=== PATIENT | male | born 1995 | race Caucasian/White ===

== ENCOUNTER 2024-08-30 16:14 | Emergency (ER) | payer SELFPAY ==
[2024-08-30 16:14] VITALS: BP 146/80; PULSE 88; RESP 16; TEMP 36.4; O2SAT 99
--- OUTSIDE RECORDS SUMMARY | 2024-08-30 16:16 | XMS_ITS | Clinical Summary ---
Author Organization [facility] [employer] Address [address] [place] [address] Care Team Providers Care Optical Engineering Manager Name Role Phone None, Physician Primary Care Provider Unavailabl e Source Comments [facility] [employer],non-owned Affiliates and Associated Physician Practices is amultiple site organization consisting of ambulatory clinics and hospital sitesin [place], [place], [place] and [place]. This disclosure is being madepursuant to the Care Everywhere program and may not contain all information available regarding this patient. Last updated 17.[facility] [employer] Allergies No known active allergies Medications * Be aware that medications may not be up to date on this document. Alwaysverify current medications with the patient. erythromycin (Romycin) 5 MG/GM ophthalmic ointment Instill into left eye 4 times daily 3.5 g 05/21/2024 Active oxymetazoline (Afrin) 0.05 % nasal spray Floyd 1 (one) spray into each nostril 2 times daily 37 mL 05/21/2024 Active Immunizations Immunization Administration Dates Next Due TDAP (7yrs+) 05/21/2024 Social History Tobacco Use Types Packs/Day Years Used Date Smoking Tobacco: Never Assessed Sex and Gender Information Value Date Recorded Sex Assigned at Not on file Legal Sex Male 4:47 PM CDT Gender Identity Not on file Sexual Orientation Not on file Last Filed Vital Signs Vital Sign Reading Time Taken Comments Blood Pressure 148/93 05/21/2024 11:26 PM CDT Pulse 75 05/21/2024 11:26 PM CDT Temperature 36.2 C (97.1 F) 05/21/2024 7:38 PM CDT Respiratory Rate 18 05/21/2024 11:26 PM CDT Oxygen Saturation 99% 05/21/2024 11:26 PM CDT Inhaled Oxygen Concentration - - Weight 117.9 kg (260 lb) 05/21/2024 7:35 PM CDT Height 180.3 cm (5' 11) 05/21/2024 7:35 PM CDT Body Mass Index 36.26 05/21/2024 7:35 PM CDT Plan of Treatment Health Maintenance Due Date Last Done Comments HIV SCREENING 2008 HEPATITIS C SCREENING 11/03/2011 HEPATITIS B VACCINE (1 of 3 - 19+ 3-dose series) 2012 COVID-19 VACCINE ( - 2023-2 5 season) 2023 DEPRESSION SCREENING 02/23/2024 INFLUENZA VACCINE (#1) 2024 12/01/2016 DTAP/TDAP/TD VACCINES (2 - T d or Tdap) 05/21/2034 05/21/2024 ZOSTER VACCINE (1 of 2) 11/08/2043 HIB VACCINE Aged Out No longer eligi ble based on patient's age to complete this topic HPV VACCINE Aged Out No longer eligi ble based on patient's age to complete this topic MENINGOCOCCAL (Group B) VACC INE SHARED DECISION-MAKING Aged Out No longer eligibl e based on patient's age to complete this topic MENINGOCOCCAL GROUPS A/C/Y/W VACCINE Aged Out No longer eligible b ased on patient's age to complete this topic PNEUMOCOCCAL VACCINE Aged Out No long er eligible based on patient's age to complete this topic Care Teams Optical Engineering Manager Relationship Specialty Start Date End Date None, Physician PCP - General 05/21/24
--- OUTSIDE RECORDS SUMMARY | 2024-08-30 16:16 | XMS_ITS | Referral Summary ---
Author Organization [facility] Address [address] [place] [address] Care Team Providers Care Records Management Analyst Name Role Phone No, Physician Primary Care Provider [phone] Allergies No known active allergies Medications oxyCODONE (ROXICODONE) 10 mg tabletIndication s:Pain Take 1 tablet (10 mg total) by mouth every 4 (four) hours as needed for pain 10 tablet 06/05/2021 Active senna-docusate (PERICOLACE) 8.6-50 mg Take 1 tablet by mouth 2 (two) times a day 60 tablet 06/05/2021 Active ondansetron (ZOFRAN) 4 mg tablet Take 1 tablet (4 mg total) by mouth every 6 (six) hours 12 tablet 11/13/2022 Active dicyclomine (BENTYL) 20 mg tablet Take 1 tablet (20 mg total) by mouth 2 (two) times a day 20 tablet 11/13/2022 Active Active 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 Monthly or less 06/04/2021 Q2: How many drinks containi ng alcohol do you have on a typical day when you are drinking? 3 or 4 06/04/2021 Q3: How often do you have si x or more drinks on one occasion? Never 06/04/2021 PHQ-2 Answer Date Recorded PHQ-2 Total Score (If total score is 3 or more points, staff should administer the PHQ-9) 0 05/27/2021 Personal Safety Answer Date Recorded Have you ever been in or are you currently in a harmful physical or emotional relationship or is someone making you feel afraid or unsafe? Denies 11/13/2022 Sex and Gender Information Value Date Recorded Sex Assigned at Not on file Legal Sex Male 6:12 PM CDT Gender Identity Not on file Sexual Orientation Not on file Last Filed Vital Signs Vital Sign Reading Time Taken Comments Blood Pressure 160/100 11/13/2022 8:17 AM CDT Pulse 77 11/13/2022 10:45 AM CDT Temperature 36.6 C (97.9 F) 11/13/2022 8:17 AM CDT Respiratory Rate 16 11/13/2022 8:17 AM CDT Oxygen Saturation 97% 11/13/2022 10:45 AM CDT Inhaled Oxygen Concentration - - Weight 146.5 kg (323 lb) 11/13/2022 8:17 AM CDT Height 182.9 cm (6') 11/13/2022 8:17 AM CDT Body Mass Index 43.81 11/13/2022 8:17 AM CDT Plan of Treatment Not on file Medical Devices Implanted Type Area Frit Mixer Device Identifier Shelf Expiration Date Model / Serial / Lot [employer] Micromatrix Micronize Particle Dressing 1000mg Biological Porcine [id number] - [id number] - [id number] Implanted:Qty: 1 on 06/04/2021 by Marcie Bailey MD at [facility] Collagen Right: Groin [employer] [id number] 07/22/2022 [id number] / [id number] / [id number] [employer] Micromatrix Micronize Particle Dressing 1000mg Biological Porcine [id number] - [id number] - [id number] Implanted:Qty: 1 on 06/04/2021 by Marcie Bailey MD at [facility] Collagen Right: Groin [employer] [id number] 07/22/2022 [id number] / [id number] / [id number] [employer] [id number] Cytal 10x7cm 3 Layer Matrix Tissue Porcine Bladder - [id number] - [id number] Implanted:Qty: 1 on 06/01/2021 by Marcie Bailey MD at [facility] Mesh N/A: Scrotum [employer] 06/21/2021 [id number] / [id number] / Description:Entire 10 x 7 cm acell implanted. [employer] Micromatrix Micronize Particle Dressing 1000mg Biological Porcine [id number] - [id number] - [id number] Implanted:Qty: 1 on 06/01/2021 by Marcie Bailey MD at [facility] Other - see comments N/A: Scrotum [employer] [id number] 07/22/2022 [id number] / [id number] / [id number] Description:PASTE POWDER Insurance [facility] Advance Directives For more information, please contact: [phone] * Full Code (Latest Code Status on File) Date Activated Date Inactivated Comments 05/27/2021 7:42 PM 06/05/2021 5:10 PM Care Teams Records Management Analyst Relationship Specialty Start Date End Date No, Physician PCP - General 05/27/21
--- OUTSIDE RECORDS SUMMARY | 2024-08-30 16:16 | XMS_ITS | Data Portability ---
Author Organization Bryan [facility]KE[facility] Address [address] [place] [address] Assessment No assessment recorded. Plan of Treatment Reminders Order Date Submit Date Provider Last Modified By Organization Details Last Modified Time Details Appointments None recorded. Lab lipid panel, serum 2023 024 [facility], [address] [place] [address], [facility] [address], [place], [address], 4 08:15:00 HbA1c (hemoglobi n A1c), blood 2023 024 [facility], [address], [address], [place], [address], 4 08:15:01 CBC w/ auto diff 2016 017 [facility] [place] ([facility]), [address], [place], [address], 7 15:16:48 CMP, serum or plasma 2016 017 [facility] [place] [facility]), [address], [place], [address], 7 15:53:19 TSH, serum or plasma 2016 017 [facility] [place] [facility]), [address], [place], [address], 7 15:42:09 T4, free, serum 2016 017 [facility] [place] [facility]), [address], [place], [address], 7 04:10:25 urinalysis , dipstick, reflex micro 2016 017 [facility] [place] [facility]), [address], [place], [address], 7 15:17:19 HbA1c (hemoglobi n A1c), blood 2016 017 [facility] [place] [facility]), [address], [place], [address], 7 03:37:57 cholestero l, total, serum 2016 017 [facility] [place] [facility]), [address], [place], [address], 7 15:53:22 Referral general surgeon referral 2023 024 [email or web address] José Manuel Nuñez , [address] [place], [address], 4 16:21:[address]/dietiti an referral 2016 017 [email or web address] [id number] [facility], [address] [place], [address], 7 11:17:15 Procedures None recorded. Surgeries None recorded. Imaging XR, knee, 3 view 2016 017 [facility] ([facility]), [address] [place], [address], 8 00:00:26 XR, knee, 3 view 2016 017 [facility] ([facility]), [address] [place], [address], 8 00:00:26 Medication Orders Carafate 1 gram tablet 2023 024 [id number], [address] [place], [address], 4 15:01:24 pantoprazo le 40 mg tablet,del ayed release 2023 024 [id number], [address] [place], [address], 4 15:01:24 chlorthali done 25 mg tablet 2023 024 [id number], [address] [place], [address], 4 15:01:24 pantoprazo le 40 mg tablet,del ayed release 2023 024 [id number], [address] [place], [address], 4 15:51:27 Carafate 1 gram tablet 2023 024 [id number], [address] [place], [address], 4 15:51:22 Patient TargetsNo targets recorded. Patient Instructions Encounter Date Encounter Id Patient Instructions Last Modified By Organization Details Last Modified Time 09/29/2023 [id number] A healthy lifestyle: care instructions Not available 09/29/2023 15:19:05 11/03/2023 [id number] A healthy lifestyle: care instructions Not available 11/03/2023 15:01:22 Reason for Referral Generation Technician/dietitian Refer ral for Morbid obesity Referring Physician: Antonella Dias [facility], Encounter Date: 12/01/2016 General Surgeon Referral for Abdominal pain Referring Physician: [facility]elius [facility]ada [facility], Encounter Date: 09/29/2023 Results Created Date Observation Date Name Description Value Unit Range Abnormal Flag Note LastModifiedBy Organization Detail LastModifiedTime 12/02/19 17 12/01/2016 CBC w/ auto diff WBC 9.4 K/uL 3.4-10 .8 Not Available [facility] (Lab) [address] [place], [address], 12/01/2016 15:16:48 12/02/19 17 12/01/2016 CBC w/ auto diff red blood count 5.8 M/uL 4.5-6. [address] [facility] (Lab) [address] [place], [address], 12/01/2016 15:16:48 12/02/19 17 12/01/2016 CBC w/ auto diff hemoglobin 17.1 g/dL 13.5-[address] [facility] (Lab) [address] [place], [address], 12/01/2016 15:16:48 12/02/19 17 12/01/2016 CBC w/ auto diff hematocrit 50.0 % 40.0-5 2.0 Not Available [facility] (Lab) [address] [place], [address], 12/01/2016 15:16:48 12/02/19 17 12/01/2016 CBC w/ auto diff MCV 86 fL 80-[address] [facility] (Lab) [address] [place], [address], 12/01/2016 15:16:48 12/02/19 17 12/01/2016 CBC w/ auto diff MCH 29 pg 27-32 Not Available [facility] (Lab) [address] [place], [address], 12/01/2016 15:16:48 12/02/19 17 12/01/2016 CBC w/ auto diff MCHC 34 g/dL 32-36 Not Available [facility] (Lab) [address] [place], [address], 12/01/2016 15:16:48 12/02/19 17 12/01/2016 CBC w/ auto diff platelets 323 K/uL 155-37 9 Not Available [facility] (Lab) [address], [place], [address], 12/01/2016 15:16:48 12/02/19 17 12/01/2016 CBC w/ auto diff RDW 12.8 % 11.5-1 4.5 Not Available [facility] (Lab) [address] [facility], [place], [address], 12/01/2016 15:16:48 12/02/19 17 12/01/2016 CBC w/ auto diff MPV 10.1 fL 8.9-12 .7 Not Available [facility] (Lab) [address] [place], [address], 12/01/2016 15:16:48 12/02/19 17 12/01/2016 CBC w/ auto diff neutrophils absolute 5.4 K/uL 1.4-7. 0 Not Available [facility] (Lab) [address] [facility], [place], [address], 12/01/2016 15:16:48 12/02/19 17 12/01/2016 CBC w/ auto diff lymphs (absolute) 2.7 K/uL 0.7-3. 1 Not Available [facility] (Lab) [address] [facility], [place], [address], 12/01/2016 15:16:48 12/02/19 17 12/01/2016 CBC w/ auto diff monocytes (absolute) 0.6 K/uL 0.1-0. 9 Not Available [facility] (Lab) [address] [place], [address], 12/01/2016 15:16:48 12/02/19 17 12/01/2016 CBC w/ auto diff eos (absolute) 0.6 K/uL 0.0-0. 4 high Not Available [facility] (Lab) [address] [place], [address], 12/01/2016 15:16:48 12/02/19 17 12/01/2016 CBC w/ auto diff baso (absolute) 0.1 K/uL 0.1-0. 3 Not Available [facility] (Lab) [address] [place], [address], 12/01/2016 15:16:48 12/02/19 17 12/01/2016 CBC w/ auto diff neut % 58.0 % 40.0-7 4.0 Not Available [facility] (Lab) [address] [place], [address], 12/01/2016 15:16:48 12/02/19 17 12/01/2016 CBC w/ auto diff lymphs % 28.3 % 14.0-4 6.0 Not Available [facility] (Lab) [address] [place], [address], 12/01/2016 15:16:48 12/02/19 17 12/01/2016 CBC w/ auto diff mono % 6.7 % 4.0-12 .0 Not Available [facility] (Lab) [address] [place], [address], 12/01/2016 15:16:48 12/02/19 17 12/01/2016 CBC w/ auto diff eos % 6 % <=5 high Not Available [facility] (Lab) [address] [facility], [place], [address], 12/01/2016 15:16:48 12/02/19 17 12/01/2016 CBC w/ auto diff baso % 1.0 % 0.1-1. 1 Not Available [facility] (Lab) [address] [place], [address], 12/01/2016 15:16:48 12/02/19 17 12/01/2016 urina lysis , dipst ick, refle x micro urhead1 URINAL YSIS, COMPLE TE Ur inalys is Gross Exam Not Available [facility] (Lab) [address] [place], [address], 12/01/2016 15:17:19 10/10/20 17 12/01/2016 urina lysis , dipst ick, refle x micro specific gravity 1.025 1.001- 1.035 Not Available [facility] (Lab) [address], [place], [address], 12/01/2016 15:17:19 12/02/19 17 12/01/2016 urina lysis , dipst ick, refle x micro pH 6.0 5.0-7. 0 Not Available [facility] (Lab) [address], [place], [address], 12/01/2016 15:17:19 12/02/19 17 12/01/2016 urina lysis , dipst ick, refle x micro urine-color YELLOW yellow Not Available [facility] ([facility]) [address], [place], [address], 12/01/2016 15:17:19 12/02/19 17 12/01/2016 urina lysis , dipst ick, refle x micro appearance CLEAR clear Not Available [facility] ([facility]) [address], [place], [address], 12/01/2016 15:17:19 12/02/19 17 12/01/2016 urina lysis , dipst ick, refle x micro WBC esterase NEGATI VE uL negati ve Not Available [facility] (Lab) [address], [place], [address], 12/01/2016 15:17:19 12/02/19 17 12/01/2016 urina lysis , dipst ick, refle x micro protein NEGATI VE mg/dL negati ve Not Available [facility] (Lab) [address] [place], [address], 12/01/2016 15:17:19 12/02/19 17 12/01/2016 urina lysis , dipst ick, refle x micro glucose NEGATI VE mg/dL negati ve Not Available [facility] (Lab) [address] [place], [address], 12/01/2016 15:17:19 12/02/19 17 12/01/2016 urina lysis , dipst ick, refle x micro ketones NEGATI VE mg/dL negati ve Not Available [facility] (Lab) [address], [place], [address], 12/01/2016 15:17:19 12/02/19 17 12/01/2016 urina lysis , dipst ick, refle x micro occult blood NEGATI VE familia/u L negati ve Not Available [facility] (Lab) [address], [place], [address], 12/01/2016 15:17:19 12/02/19 17 12/01/2016 urina lysis , dipst ick, refle x micro bilirubin NEGATI VE negati ve Not Available [facility] (Lab) [address], [place], [address], 12/01/2016 15:17:19 12/02/19 17 12/01/2016 urina lysis , dipst ick, refle x micro urobilinogen 0.2 Not Available [facility] (Lab) [address], [place], [address], 12/01/2016 15:17:19 12/02/19 17 12/01/2016 urina lysis , dipst ick, refle x micro nitrite, urine NEGATI VE negati ve Not Available [facility] (Lab) [address], [place], [address], 12/01/2016 15:17:19 12/02/19 17 12/01/2016 TSH, serum or plasm a TSH 1.44 uIU/m L 0.50-4 .50 Not Available [facility] (Lab) [address], [place], [address], 12/01/2016 15:42:09 12/02/19 17 12/01/2016 CMP, serum or plasm a glucose, serum 98 mg/dL 65-99 Not Available [facility] ([facility]) [address], [place], [address], 12/01/2016 15:53:19 12/02/19 17 12/01/2016 CMP, serum or plasm a BUN 14 mg/dL 8-26 Not Available [facility] (Lab) [address], [place], [address], 12/01/2016 15:53:19 12/02/19 17 12/01/2016 CMP, serum or plasm a creatinine, serum 1.00 mg/dL 0.50-[address] [facility] (Lab) [address], [place], [address], 12/01/2016 15:53:19 12/02/19 17 12/01/2016 CMP, serum or plasm a BUN/creatnin e ratio 14.0 Not Available [facility] (Lab) [address], [place], [address], 12/01/2016 15:53:19 12/02/19 17 12/01/2016 CMP, serum or plasm a sodium, serum 141.0 mEq/L 136.0- 144.0 Not Available [facility] (Lab) [address], [place], [address], 12/01/2016 15:53:19 12/02/19 17 12/01/2016 CMP, serum or plasm a potassium, serum 4.5 mmol/ L 3.5-5. 3 Not Available [facility] (Lab) [address], [place], [address], 12/01/2016 15:53:19 12/02/19 17 12/01/2016 CMP, serum or plasm a chloride, serum 103 mmol/ l 101-11 1 Not Available [facility] (Lab) [address], [place], [address], 12/01/2016 15:53:19 12/02/19 17 12/01/2016 CMP, serum or plasm a carbon dioxide total 24.7 mmol/ L 21.0-3 2.0 Not Available [facility] (Lab) [address], [place], [address], 12/01/2016 15:53:19 12/02/19 17 12/01/2016 CMP, serum or plasm a aniongp 18.0 mmol/ L Not Available [facility] (Lab) [address], [place], [address], 12/01/2016 15:53:19 12/02/19 17 12/01/2016 CMP, serum or plasm a calcium, serum 10.1 mg/dL 8.2-10 .0 high Not Available [facility] (Lab) [address], [place], [address], 12/01/2016 15:53:19 12/02/19 17 12/01/2016 CMP, serum or plasm a total protein 7.2 g/dL 6.7-8. 2 Not Available [facility] (Lab) [address], [place], [address], 12/01/2016 15:53:19 12/02/19 17 12/01/2016 CMP, serum or plasm a albumin, serum 4.6 g/dL 3.5-5. 5 Not Available [facility] (Lab) [address], [place], [address], 12/01/2016 15:53:19 12/02/19 17 12/01/2016 CMP, serum or plasm a agratio 1.8 Not Available [facility] (Lab) [address], [place], [address], 12/01/2016 15:53:19 12/02/19 17 12/01/2016 CMP, serum or plasm a bilt 0.3 mg/dL 0.2-1. 0 Not Available [facility] (Lab) [address], [place], [address], 12/01/2016 15:53:19 12/02/19 17 12/01/2016 CMP, serum or plasm a AST 16.0 U/L 10.0-4 2.0 Not Available [facility] (Lab) [address], [place], [address], 12/01/2016 15:53:19 12/02/19 17 12/01/2016 CMP, serum or plasm a ALT 26.0 U/L 10.0-[address] [facility] (Lab) [address], [place], [address], 12/01/2016 15:53:19 12/02/19 17 12/01/2016 CMP, serum or plasm a alk phos 68.0 IU/L 42.0-[address] [facility] (Lab) [address], [place], [address], 12/01/2016 15:53:19 12/02/19 17 12/01/2016 CMP, serum or plasm a osmol 282.0 mOsm/ L 275.0- 301.[address] [facility] (Lab) [address], [place], [address], 12/01/2016 15:53:19 12/02/19 17 12/01/2016 CMP, serum or plasm a eGFR, AM 119 m/lmi n/1.7 3_m >=[address] [facility] (Lab) [address], [place], [address], 12/01/2016 15:53:19 12/02/19 17 12/01/2016 CMP, serum or plasm a eGFR, non- AM 99 mL/mi n/1.7 3/m >=[address] [facility] (Lab) [address], [place], [address], 12/01/2016 15:53:19 12/02/19 17 12/01/2016 sherif stero l, total , serum cholestrol 232.0 mg/dL 140.0- 200.[address] [facility] (Lab) [address], [place], [address], 12/01/2016 15:53:22 1012/02/2016 HbA1c (hemo globi n A1c), blood hemoglobin A1C 5.1 % 4.8-5. 6 . Pre-d iabet es: 5.7 - 6.4 Diabe denzel: >6.4 Glyce christen contr ol for adult s with diabe denzel: <7.0 Not Available [facility] (Lab) [address], [place], [address], 12/02/2016 03:37:57 12/02/1912/02/2016 T4, free, serum T4,free(dire ct) 1.20 NG/dL 0.82-1 .77 Not Available [facility] (Lab) [address] [facility], [place], [address], 12/02/2016 04:10:25 12/09/1912/08/2016 lipid panel w/ direc t LDL, serum cholestrol 244.0 mg/dL 140.0- 200.0 high Not Available [facility] (Lab) [address] [facility], [place], [address], 12/08/2016 16:03:56 12/09/1912/08/2016 lipid panel w/ direc t LDL, serum triglyceride s 406 mg/mL 150-19 9 high Not Available [facility] (Lab) [address], [place], [address], 12/08/2016 16:03:56 12/09/1912/08/2016 lipid panel w/ direc t LDL, serum HDL cholesterol 32.0 mg/dL 40.0-1 00.0 low Not Available [facility] (Lab) [address], [place], [address], 12/08/2016 16:03:56 12/09/1912/08/2016 lipid panel w/ direc t LDL, serum LDL direct 165 mg/dL <=100 high Not Available [facility] ([facility]) [address] [place], [address], 12/08/2016 16:03:56 12/09/1912/08/2016 lipid panel w/ direc t LDL, serum cholhdl 7.60 mg/dL 0.00-4 .98 high Not Available [facility] (Lab) [address], [place], [address], 12/08/2016 16:03:56 09/29/19 24 09/30/2023 LIPID PANEL cholesterol, total 233 mg/dL 100-19 9 above high normal Not Available [facility] ([facility]) [address] [place], [address], 09/30/2023 08:15:00 09/29/19 24 09/30/2023 LIPID PANEL triglyceride s 116 mg/dL 0-149 Not Available [facility] ([facility]) [address] [place], [address], 09/30/2023 08:15:00 09/29/19 24 09/30/2023 LIPID PANEL HDL cholesterol 42 mg/dL >39 Not Available [facility]) [address] [place], [address], 09/30/2023 08:15:00 09/29/19 24 09/30/2023 LIPID PANEL VLDL cholesterol rudolph 21 mg/dL 5-40 Not Available [facility] ([facility]) [address] [place], [address], 09/30/2023 08:15:00 09/29/19 24 09/30/2023 LIPID PANEL LDL chol calc ([facility]) 170 mg/dL 0-99 above high normal Not Available [facility] ([facility]) [address] [place], [address], 09/30/2023 08:15:00 09/29/19 24 09/30/2023 HEMOG LOBIN A1C hemoglobin A1C 5.3 % 4.8-5. 6 Predi abete s: 5.7 - 6.4 Diabe denzel: >6.4 Glyce christen contr ol for adult s with diabe denzel: <7.0 Not Available [facility] ([facility]) [address] [facility], [place], [address], 09/30/2023 08:15:01 Result Notes None recorded. Problems Name Problem SNOMED Code Status Onset Date Resolution Date Notes Provider Name and Address Organization Details Recorded Time Abdominal pain 76373890 Active 2023 Cornelius Parada PA-C Attn: Shorty christensen,[address] [facility], [place], [address], [facility] 4 15:16:35 Necrotizing fasciitis of scrotum and perineum 665564788 Active 2023 Cornelius Parada PA-C Attn: Shorty christensen,[address] [place], [address], [facility] - [facility] 4 16:10:00 Essential hypertension 50822832 Active 2023 Cornelius Parada PA-C Attn: Accountantonio christensen,[address] [place], [address], [facility] - [facility] 4 14:58:54 Difficulty sleeping 577389456 Active 2023 Cornelius Parada PA-C Attn: Shorty christensen,[address] [facility], [place], [address], [facility] - [facility] 4 15:00:03 Bilateral knee pain Active 2016 Mandie Haque MA null, [place] - [facility] 7 11:27:34 Problem Notes None recorded. Medical Equipment None Reported. Allergies No known drug allergies Medications Name Sig Start Date Stop Date Status Note LastModified by Organization Details LastModified Time amoxicillin 500 mg capsule TAKE 1 CAPSULE BY MOUTH THREE TIMES A DAY UNTIL GONE active Not Available Not Available No t Available sucralfate 1 gram tablet Take 1 tablet 4 times a day by oral route for 28 days. active Not Available Not Available No t Available ondansetron HCl 4 mg tablet TAKE 1 TABLET BY MOUTH EVERY 6 HOURS. 09/28 completed Not Available Not Available Not Available famotidine 40 mg tablet active Not Available Not Available Not Available chlorthalido ne 25 mg tablet Take 1 tablet every day by oral route. active Not Available Not Available No t Available omeprazole 40 mg capsule,brittney yed release TAKE 1 CAPSULE BY MOUTH EVERY DAY 09/28 completed Not Available Not Available Not Available famotidine 20 mg tablet TAKE 1 TABLET BY MOUTH THREE TIMES A DAY 09/28 completed Not Available Not Available Not Available dicyclomine 20 mg tablet TAKE 1 TABLET BY MOUTH FOUR TIMES A DAY 09/28 completed Not Available Not Available Not Available cephalexin 500 mg capsule TAKE 1 CAPSULE BY MOUTH TWICE A DAY 09/28 completed Not Available Not Available Not Available pantoprazole 40 mg tablet,delay ed release Take 1 tablet every day by oral route. active Not Available Not Available No t Available omeprazole 20 mg capsule,brittney yed release TAKE 1 CAPSULE BY MOUTH EVERY DAY 09/28 completed Not Available Not Available Not Available Vitals Date Recorded Systolic And Diastolic Provider Name and Address Organization Details Last Updated DateTime 09/29/2023 138/88 mm[Hg] LILIANA Marin Attn: Accounting,[address] [place], [address], [facility] 09/29/2023 15:18:39 Date Recorded Body height Body mass index (BMI) Body weight Oxygen saturation Oxygen saturation in Arterial blood by Pulse oximetry Heart rate Respiratory rate Provider Name and Address Organization Details Last Updated DateTime 4 179.07 cm 38.1 kg/m2 259905. 7 g 99 % 99 % 85 /min 18 /min Lyudmila Odell MA [facility] 4 15:08:19 Date Recorded Body height Body mass index (BMI) Body weight Oxygen saturation Oxygen saturation in Arterial blood by Pulse oximetry Heart rate Respiratory rate Systolic And Diastolic Provider Name and Address Organization Details Last Updated DateTime 4 179.07 cm 37.2 kg/m2 913014. 49 g 98 % 98 % 92 /min 17 /min 142/102 mm[Hg] Lyudmila Odell MA [facility] 4 14:31:23 Date Recorded Body height Body mass index (BMI) Body weight Oxygen saturation Oxygen saturation in Arterial blood by Pulse oximetry Heart rate Body temperature Systolic And Diastolic Provider Name and Address Organization Details Last Updated DateTime 7 179.07 cm 48.8 kg/m2 042701. 77 g 97 % 97 % 105 /min 98.5 [degF] 132/84 mm[Hg] Mandie Haque MA [facility] 7 11:30:46 Social History Question Answer Notes LastModified by Organizat ion Details LastModified Time Tobacco Smoking Status Current Every Day Smoker Mandie Haque [place] null, [place] - [place] 12/01/2016 11:31:22 Do You Have An Advance Directive? Yes Information n ot available 09/29/2023 Are You Blind Or Do You Have Difficulty Seeing? No Information n ot available 09/29/2023 What Is Your Level Of Caffeine Consumption? Moderate Information not available 12/01/2016 In The 14 Days Before Symptom Onset, Have You Had Close Contact With A Laboratory-confirm ed COVID-19 While That Case Was Ill? No Information n ot available 09/29/2023 In The 14 Days Before Symptom Onset, Have You Had Close Contact With A Person Who Is Under Investigation For COVID-19 While That Person Was Ill? No Information not available 09/29/2023 Have You Been To An Area Known To Be High Risk For COVID-19? No Information not available 09/29/2023 Are You Deaf Or Do You Have Serious Difficulty Hearing? No Information not available 09/29/2023 What Type Of Diet Are You Following? REGULAR Information n ot available 12/01/2016 Which Illicit Or Recreational Drugs Have You Used? None Information not available 12/01/2016 Education 12 Information no t available 12/01/2016 Are There Any Guns Present In Your Home? No Information not available 09/29/2023 Hard Of Hearing Or Deaf In One Or Both Ears? No Information not available 12/01/2016 Legally Blind In One Or Both Eyes? No Information no t available 12/01/2016 Live Alone Or With Others? With Others Information not available 12/01/2016 Do You Feel Physically And Emotionally Safe While Living At Home? Yes Information not available 09/29/2023 Do You Feel Physically And Emotionally Safe In Your Neighborhood Or Other Public Places? Yes Information not available 09/29/2023 What Was The Date Of Your Most Recent Tobacco Screening? 11/03/2023 Information not available 11/03/2023 How Many Children Do You Have? 0 Information not available 12/01/2016 Do You Use Protection During Sex? Usually Information not available 12/01/2016 What Is Your Relationship Status? Domestic Partner Information not available 09/29/2023 Do You Use Your Seat Belt Or Car Seat Routinely? Yes Information not available 09/29/2023 Are You Sexually Active? Yes Information not available 09/29/2023 Do You Have Smoke And Carbon Monoxide Detectors In Your Home? Yes Information not available 09/29/2023 Are You Passively Exposed To Smoke? Yes Information no t available 09/29/2023 How Much Tobacco Do You Smoke? 0.5 PPD Information not available 12/01/2016 General Stress Level Medium Information not available 12/01/2016 Do You Use Sunscreen Routinely? No Information not available 09/29/2023 Has Tobacco Cessation Counseling Been Provided? Yes Information not available 09/29/2023 On What Date Was Tobacco Cessation Counseling Provided? 11/03/2023 Information not available 11/03/2023 Sex: Male Functional Status Question Answer Note LastModified by Organizat ion Details LastModified Time Do you use any illicit or recreational drugs? No Information not available 09/29/2023 Do you or have you ever used any other forms of tobacco or nicotine? Yes Information not available 09/29/2023 What is your level of alcohol consumption? Heavy Information not available 09/29/2023 Are you currently employed? No Information not available 12/01/2016 Are you able to care for yourself? Yes Information not available 12/01/2016 Do you or have you ever used e-cigarettes or vape? Current user of electronic cigarettes Information not available 09/29/2023 What is your exercise level? Occasional Information not available 12/01/2016 Mental Status Question Answer Note LastModified by Organization D etails LastModified Time Do you feel stressed (tense, restless, nervous, or anxious, or unable to sleep at night)? [id number] Information not available 09/29/2023 Family History Relationship Description Onset Age of this Age Resolved Age Notes LastModified by Organization Details LastModified Time Mother Depressive disorder [email or web address] Not available 2016 11:27:58 Mother Diabetes mellitus raustinma Not available 2016 11:28:07 Mother Heart disease raustinma Not available 2016 11:28:22 Mother Hypertensive disorder raustinma Not available 2016 11:28:38 Mother Hypercholest erolemia raustinma Not available 2016 11:28:50 Mother Osteoporosis raustinma Not avai lable 12/01/2016 11:29:02 Medical History Condition Response Coronary Artery Disease N Other N Atrial Fibrillation N High Blood Pressure N Depression N COPD N Blood Clots N Anxiety Disorder N Muscle, Joint, or Bone Problems N Acid Reflux (GERD) N Cancer N Stroke N High Cholesterol N Liver Disease N Headaches N Kidney or Bladder Problems N Thyroid Problems N GI Problems N Skin Problems N Anemia N Heart Attack (IA) N Diabetes N Seizures/Epilepsy N Asthma N Allergies N Hepatitis N Heart Failure N Osteoporosis N Immunizations Vaccine Type Date Status Note Provider Nam e and Address Organization Details Recorded Time Influenza, split virus, quadrivalent, preservative 7 completed Not Available [facility] 03/11/2019 02:34:22 DTaP 4 completed Diana Mauricio [place] null, [place] [facility] 10/15/2016 17:00:21 DTaP 5 [place] BH[place]ESH [place] [facility] 10/15/2016 17:00:27 DTaP 6 [place] [facility] 10/15/2016 17:00:31 Hib, unspecified formulation 4 completed [place] [facility] 10/15/2016 17:00:45 Hib, unspecified formulation 5 completed [place] [facility] 10/15/2016 17:00:51 Hib, unspecified formulation 6 completed [place] [facility] 10/15/2016 17:00:56 Hep B, adolescent or pediatric 4 [place] [facility] 10/15/2016 17:01:11 Hep B, adolescent or pediatric 4 completed Diana Maur[place] [facility] 10/15/2016 17:01:15 Hep B, adolescent or pediatric 5 completed [place] [facility] 10/15/2016 17:01:19 MMR 6 completed BHAVESH Negro, [place] - [facility] 10/15/2016 17:01:28 OPV, Unspecified 4 completed BHAVESH [place], [place] [facility] 10/15/2016 17:14:32 OPV, Unspecified 5 completed BH[place] [facility] 10/15/2016 17:14:40 OPV, Unspecified 6 completed [place] [facility] 10/15/2016 17:14:46 Past Encounters Encounter ID Performer Location Encounter Start Date Encounter Closed Date Diagnosis/Indication Diagnosis SNOMED-CT Code Diagnosis ICD10 Code Diagnosis Note [id number] MD Marcellus Bassett ([facility]) [address] [place] [address] 12/01/2016 11:09:26 12/04/2016 11:17:15 Bilateral knee pain [id number] M25.561 M25.562 Adult [facility] th examination 820902827 Z00.00 Administra tion of influenza vaccine 45193424 Z23 Morbid obesity 297024475 E66.01 [id number] MD Marcellus Bassett ([facility]) [address] [place] [address] 12/08/2016 10:40:56 12/15/2016 09:52:05 [id number] AWILDA Marin [address] [place] [address] 09/29/2023 14:57:48 09/29/2023 15:55:22 Abdominal pain 22744816 R10.9 09/29/23: reports several years and waxing and waning abdominal pain. usually worse upon waking with associated nausea and loose stools without hematochez ia, melena, or mucous. reprots diet is inconsiste nt, but symptoms are not generally postprandi al, but will be worse for a day or so after he has had fast food for several days in a row.has not had PCP for years. has been in and out of ED for this, most recently [facility] ED on 09/[address] abdomen/pe lvis unrevealin g. reports has been rx'ed dicyclomin e, omeprazole , and famotidine for this in the past and taking famotidine currently TiD with some small benefit.dd x remains broad. certainly may have gastritis component if partial benefit to famotidine and will trial two week course of pantoprazo le with carafate. that said, seems to have significan t lower GI component as well and biliary dyskinesia , IBS, IBD are considerat ions also. recommend endoscopy and will refer to gen surg.RTC two weeks to reassess. pt comfortabl e with plan. Elevated blood-pressure reading without diagnosis of hypertension 338310492 R03.0 09/29/23: 138/90 today. high in ED multiple times. RTC two weeks for recheck. Obesity 582481964 E66.9 Depression screening 171 062563 Z13.31 Xanthelasma 607354767 H0 2.60 09/29/23: incidental on exam and discussed in patient in detail. note hyperlipid emia on prior labs in 2017 and will recheck today along with a1c. 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 hospitaliz ed in [place] and needed several surgeries at that time, but completely recovered without residual complicati ons. exam deferred. [id number] AWILDA Marin [facility] [address] [place] [address] 11/03/2023 14:24:50 11/03/2023 14:58:45 Obesity 169270209 E66.8 Abdominal pain 01249380 R10.9 11/03/23: reports marked benefit to pantoprazo le and carafate. reprots about 80-90% improvemen t in abdominal pain symptoms while taking, but diarrhea persists. pain recurred when he ran out and presented to ED again on 10/26, where lactic acid elevated, and CT showed possible subtle gastric wall thickening . refilled meds and has been taking again for past week with benefit. will continue, but info given for patient to contact gen surg for possible endoscopy. pt comfortabl e with plan. 09/29/23: reports several years and waxing and waning abdominal pain. usually worse upon waking with associated nausea and loose stools without hematochez ia, melena, or mucous. reprots diet is inconsiste nt, but symptoms are not generally postprandi al, but will be worse for a day or so after he has had fast food for several days in a row.has not had PCP for years. has been in and out of ED for this, most recently [facility] ED on 09/[address] abdomen/pe lvis unrevealin g. reports has been rx'ed dicyclomin e, omeprazole , and famotidine for this in the past and taking famotidine currently TiD with some small benefit.dd x remains broad. certainly may have gastritis component if partial benefit to famotidine and will trial two week course of pantoprazo le with carafate. that said, seems to have significan t lower GI component as well and biliary dyskinesia , IBS, IBD are considerat ions also. recommend endoscopy and will refer to gen surg.RTC two weeks to reassess. pt comfortabl e with plan. Essential hypertension 49755328 I10 11/03/23: 142/102 today and will go ahead and start chlorthali done. educated on adverse drug reactions in detail. Pt comfortabl e with plan. 09/29/23: 138/90 today. high in ED multiple times. RTC two weeks for recheck. Difficulty sleeping 3013 87177 Z72.820 11/03/23: reports initial insomnia and frequent waking. sometimes due to aches and pains and sometimes due to anxiety/ra cing thoughts. has tried melatonin without benefit in past. has never tried diphenhydr amine and recommend 50mg hs. pt will trial OTC. Depression screening 171 321271 Z13.31 Health Concerns Section Related Observation LastModified by Organization Detai ls LastModified Time None Recorded Concern Status LastModified by Organization Details LastModified Time None Recorded Advance Directives Directive Y: Payers Insurance Date Sequence Insurance Name Policy Number Policy Bhatia Covered Member ID Bhatia Member ID Guarantor Name 11/01/2023 1 [facility] ON OR AFTER 08/22/20 (MEDICAID REPLACEMENT - HMO) Garland Ellis [id number] Garland Ellis 09/29/2023 1 [facility] PRIOR TO 08/22/2020 (MEDICAID REPLACEMENT - HMO) Garland Ellis [id number] Garland Ellis Notes Date Note Type Note Provider Name and Address Organization Details Recorded Time 12/01/2016 text/html Comes today to establish care with provider. Patient complains of bilateral knee pain more on the right than left. Patient states knee pain has been going on for the last couple of months. Patient denies recent injury or trauma to the knees. Patient states knee pain occurs when sitting down for a period of time. patient states when walking helps relieve the pain. Patient states has noticed buckling when walking. Denies swelling to the knees. Denies pain radiating to the foot. Patient also states does not eat healthy or do any form of exercise. Patient states is interested in seeing a dietitian to learn more about healthy eating. RAEANN Chaudhari Attn: Accounting,[address] [place], [address], [place] [facility] 12/01/2016 22:13:57 09/29/2023 text/html new patient, presents for evaluation of abdominal pain reports several years and waxing and waning abdominal pain. usually worse upon waking with associated nausea and loose stools without hematochezia, melena, or mucous. reprots diet is inconsistent, but symptoms are not generally postprandial, but will be worse for a day or so after he has had fast food for several days in a row.has not had PCP for years. has been in and out of ED for this, most recently [facility] ED on 09/[address] abdomen/pelvis unrevealing. reports has been rx'ed dicyclomine, omeprazole, and famotidine for this in the past and taking famotidine currently TiD with some small benefit. PMH stated as otherwise unremarkable.denie s significant heartburn, chest pain, dyspnea, flank pain, LUTS. has tried no OTCs or specific diets for these symptoms. Cornelius Parada PA-C Attn: Accounting,[address] [facility], [place], [address], [facility] 09/29/2023 16:12:20 11/03/2023 text/html pt presents for f/u abdominal pain.reports marked benefit to pantoprazole and carafate. reprots about 80-90% improvement in abdominal pain symptoms while taking, but diarrhea persists. pain recurred when he ran out and presented to ED again on 10/26, where lactic acid elevated, and CT showed possible subtle gastric wall thickening. refilled meds and has been taking again for past week with benefit. also reports initial insomnia and frequent waking. sometimes due to aches and pains and sometimes due to anxiety/racing thoughts. has tried melatonin without benefit in past. Corneluis Parada PA-C Attn: Accounting,[address] [facility], [place], [address], [facility] 11/03/2023 16:18:53
--- OUTSIDE RECORDS SUMMARY | 2024-08-30 16:16 | XMS_ITS | Clinical Summary ---
Author Organization [facility] Address [address] [place] [address] Care Team Providers Care Relish Maker Name Role Phone None, Provider MD Primary Care Provider Unavaila ble Allergies No known active allergies Medications No known medications Active Problems Problem Noted Date Diagnosed Date Facial cellulitis 05/21/2024 Difficulty sleeping 11/03/2023 Essential hypertension 11/03/2023 Abdominal pain 09/29/2023 Necrotizing fasciitis ([facility]) 05/28/19 22 Family History Medical History Relation Comments Diabetes Mother Hyperlipidemia Mother Relation Status Comments Mother Social History Tobacco Use Types Packs/Day Years Used Date Smoking Tobacco: Every Day Cigarettes 1 13.5 Started: 2011 Smokeless Tobacco: Current Tobacco Cessation:Ready to Q uit: Not Asked; Counseling Given: Not Answered Alcohol Use Standard Drinks/Week Comments Yes 13.3 (1 standard drink = 0.6 oz pure alcohol) Sex and Gender Information Value Date Recorded Sex Assigned at Male 05/21/2024 2:21 PM CDT Legal Sex Male 4:56 PM CDT Gender Identity Not on file Sexual Orientation Not on file Last Filed Vital Signs Vital Sign Reading Time Taken Comments Blood Pressure 138/90 05/21/2024 5:15 PM CDT Pulse 82 05/21/2024 4:00 PM CDT Temperature 36.6 C (97.8 F) 05/21/2024 4:00 PM CDT Respiratory Rate 20 05/21/2024 4:00 PM CDT Oxygen Saturation 95% 05/21/2024 4:00 PM CDT Inhaled Oxygen Concentration - - Weight 117.9 kg (260 lb) 05/21/2024 2:14 PM CDT Height 180.3 cm (5' 11) 05/21/2024 2:14 PM CDT Body Mass Index 36.26 05/21/2024 2:14 PM CDT Plan of Treatment Health Maintenance Due Date Last Done Comments Annual Physical 1996 Hepatitis C 11/08/2011 Pneumococcal Vaccine: Pediatrics (0 to 5 Years) and At-Risk Patients (6 to 49 Years) (1 of 2 - PCV) 2012 COVID-19 Vaccine (1 - season) 2023 DTaP, Tdap and Td Vaccines (5 - Td or Tdap) 05/21/2034 05/21/2024, 05/31/1995, 03/25/1994, Additional history exists Hepatitis B Vaccines Completed 05/29/1994, 1993, 1993 HPV Vaccines Aged Out No longer eligi ble based on patient's age to complete this topic Meningococcal B Vaccine Aged Out No l onger eligible based on patient's age to complete this topic Meningococcal Vaccine Aged Out No joyce rayn eligible based on patient's age to complete this topic RSV Immunizations Under 20 Months Aged Out No longer eligible based on patient's age to complete this topic Advance Directives * Full Code (Latest Code Status on File) Date Activated Date Inactivated Comments 05/21/2024 3:58 PM 05/21/2024 9:24 PM Care Teams Relish Maker Relationship Specialty Start Date End Date None, Provider, PCP - General UNKNOWN PHYSICIAN SPECIALTY 09/05/23
--- OUTSIDE RECORDS SUMMARY | 2024-08-30 16:16 | XMS_ITS | Clinical Summary ---
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 Gender Identity Not on file Sexual Orientation Not on file Plan of Treatment Health Maintenance Due Date Last Done Comments Hepatitis C Virus (HCV) Screening 1993 TdaP Immunization 1993 Human Papillomavirus (HPV) Immunization (1 - Male 3-dose series) 2008 SARS-COV-2 Immunization ( season) 2023 Influenza Immunization (#1) 2024 12/01/2016 Respiratory Syncytial Virus (RSV) Immunization (Adult) (1 - 1-dose 75+ series) 2068 Hepatitis B Immunization Completed 995, 1993, 1993 DTaP/Tdap/Td Immunization Discontinued 1995, 03/25/1994, 1993 Meningococcal Immunization (ACWY) Aged Out No longer eligible based on patient's age to complete this topic Pneumococcal Immunization Combined Aged Out No longer eligible based on patient's age to complete this topic Rotavirus Immunization Aged Out No lo nger eligible based on patient's age to complete this topic
--- OUTSIDE RECORDS SUMMARY | 2024-08-30 16:16 | XMS_ITS | Clinical Summary ---
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 Medical History Medical History Date Comments Adhd Social History Tobacco Use Types Packs/Day Years [...] on file Sexual Orientation Not on file Obstetrics History Last Filed Vital Signs Vital Sign Reading [...] 11/13/2022 8:17 AM CDT Plan of Treatment Health Maintenance Due Date Last Done Comments Hepatitis C Screening 1993 DTaP/Tdap/Td Vaccine (4 - Tdap) 2004 05/31/1995, 03/25/1994, 1993 Varicella Vaccines (1 of 2 - 13+ 2-dose series) 2006 Regular Well Visit/Exam 18-64 11/08/2011 Pneumococcal vaccine <65 (1 of 2 - PCV) 2012 Depression Screening 05/27/2022 05/27/2021, 05/27/2021 Influenza Vaccine (Season Ended) 2024 12/01/2016 Hepatitis B Screening Completed 05/29/1994 , 1993, 1993 HPV Vaccines Aged Out No longer eligi ble based on patient's age to complete this topic Medical Devices Implanted Type Area Em Physician Device Identifier Shelf Expiration Date Model / Serial / Lot [employer] Micromatrix Micronize Particle Dressing 1000mg Biological Porcine [id number] - [id number] - [id number] Implanted:Qty: 1 on 06/04/2021 by Marcie Bailey MD at [facility] Collagen Right: Groin [employer] [id number] 07/22/2022 [id number] / [id number] / [id number] [employer] Micromatrix Micronize Particle Dressing 1000mg Biological Porcine [id number] - [id number] - [id number] Implanted:Qty: 1 on 06/04/2021 by Marcie Bailey MD at [facility] Collagen Right: Groin [employer] [id number] 07/22/2022 [id number] / [id number] / [id number] [employer] [id number] Cytal 10x7cm 3 Layer Matrix Tissue Porcine Bladder - [id number] - [id number] Implanted:Qty: 1 on 06/01/2021 by Marcie Bailey MD at [facility] Mesh N/A: Scrotum [employer] 06/21/2021 [id number] / [id number] / Description:Entire 10 x 7 cm acell implanted. [employer] Micromatrix Micronize Particle Dressing 1000mg Biological Porcine [id number] - [id number] - [id number] Implanted:Qty: 1 on 06/01/2021 by Marcie Bailey MD at [facility] Other - see comments N/A: Scrotum [employer] [id number] 07/22/2022 [id number] / [id number] / [id number] Description:PASTE POWDER Insurance [facility] Advance Directives For more information, please contact: [phone] * Full Code (Latest Code Status on File) Date Activated Date Inactivated Comments 05/27/2021 7:42 PM 06/05/2021 5:10 PM Care Teams Chief Of Harbor Patrol Relationship Specialty Start Date End Date No, Physician PCP - General 05/27/21
--- OUTSIDE RECORDS SUMMARY | 2024-08-30 16:16 | XMS_ITS | Encounter Summary ---
Author Organization [facility] Address [address] [place] [address] Care Team Providers Care Supervisor Grounds Name Role Phone None, Physician Primary Care Provider Unavailabl e Encounter Details Date Type Department Care Team (Late st Contact Info) Description 05/21/2024 Ophth Exam [facility] - Ophthalmology [address] [place] [address] Jeremy Sanchez MD [address] [place] [address] Social History Tobacco Use Types Packs/Day Years Used Date Smoking Tobacco: Never Assessed Sex and Gender Information Value Date Recorded Sex Assigned at Not on file Legal Sex Male 4:47 PM CDT Gender Identity Not on file Sexual Orientation Not on file documented as of this encounter Plan of Treatment Not on file documented as of this encounter Visit Diagnoses Not on filedocumented in this encounter Care Teams Supervisor Grounds Relationship Specialty Start Date End Date None, Physician PCP - General 05/21/24 documented as of this encounter
--- OUTSIDE RECORDS SUMMARY | 2024-08-30 20:22 | XMS_ITS | Encounter Summary ---
Author Organization [facility] Address [address] [place] [address] Care Team Providers Care Electrician Front Name Role Phone None, Physician Primary Care Provider Unavailabl e Encounter Details Date Type Department Care Team (Late st Contact Info) Description 05/21/2024 Ophth Exam [facility] - Ophthalmology [address] [place] [address] Jeremy Sanchez MD [address] [place] [address] Social History Tobacco Use Types Packs/Day Years [...] on filedocumented in this encounter Care Teams Electrician Front Relationship Specialty Start Date End Date None, Physician PCP - General 05/21/24 documented as of this encounter
--- OUTSIDE RECORDS SUMMARY | 2024-08-30 20:22 | XMS_ITS | Clinical Summary ---
Author Organization [facility] [employer] [facility] Address [address] [place] [address] Care Team Providers Care Analytical Strategist Name Role Phone None, Physician Primary Care Provider Unavailabl e Source Comments [facility] [employer] [facility],non-owned Affiliates and Associated Physician Practices is amultiple site organization consisting of ambulatory clinics and hospital sitesin [place], [place], [place] and [place]. This disclosure is being madepursuant to the Care Everywhere program and may not contain all information available regarding this patient. Last updated 17.[facility] [employer] Allergies No known active allergies Medications * Be aware that medications may not be up to date on this document. Alwaysverify current medications with the patient. erythromycin (Romycin) 5 MG/GM ophthalmic ointment Instill into left eye 4 times daily 3.5 g 05/21/2024 Active oxymetazoline (Afrin) 0.05 % nasal spray [place] 1 (one) spray into each nostril 2 [...] age to complete this topic Care Teams Analytical Strategist Relationship Specialty Start Date End Date None, Physician PCP - General 05/21/24
--- OUTSIDE RECORDS SUMMARY | 2024-08-30 20:22 | XMS_ITS | Referral Summary ---
Author Organization [facility] Address [address] [place] [address] Care Team Providers Care Vineyard Worker Name Role Phone No, Physician Primary Care Provider [phone] Allergies No known active allergies Medications oxyCODONE [...] on file Medical Devices Implanted Type Area Slab Lifting Engineer Device Identifier Shelf Expiration Date Model / Serial / Lot [employer] Micromatrix Micronize Particle Dressing 1000mg Biological Porcine [id number] - [id number] - [id number] Implanted:Qty: 1 on 06/04/2021 by Marcie Bailey MD at [facility] Collagen Right: Groin [employer] [id number] 07/22/2022 [id number] / [id number] / [id number] [employer] Micromatrix Micronize Particle Dressing 1000mg Biological Porcine [id number] - [id number] - [id number] Implanted:Qty: 1 on 06/04/2021 by Marcie Bailey MD at [facility] Collagen Right: Groin [employer] [id number] 07/22/2022 [id number] / [id number] / [id number] [employer] [id number] Cytal 10x7cm 3 Layer Matrix Tissue Porcine Bladder - [id number] - [id number] Implanted:Qty: 1 on 06/01/2021 by Marcie Bailey MD at [facility] Mesh N/A: Scrotum [employer] 06/21/2021 [id number] / [id number] / Description:Entire 10 x 7 cm acell implanted. [employer] Micromatrix Micronize Particle Dressing 1000mg Biological Porcine [id number] - [id number] - [id number] Implanted:Qty: 1 on 06/01/2021 by Marcie Bailey MD at [facility] Other - see comments N/A: Scrotum [employer] [id number] 07/22/2022 [id number] / [id number] / [id number] Description:PASTE POWDER Insurance [facility] Advance Directives For more information, please contact: [phone] * Full Code (Latest Code Status on File) Date Activated Date Inactivated Comments 05/27/2021 7:42 PM 06/05/2021 5:10 PM Care Teams Vineyard Worker Relationship Specialty Start Date End Date No, Physician PCP - General 05/27/21
--- OUTSIDE RECORDS SUMMARY | 2024-08-30 20:22 | XMS_ITS | Clinical Summary ---
Author Organization [facility] Address [address] [place] [address] Care Team Providers Care Security Operations Engineer Name Role Phone No, Physician Primary Care Provider [phone] Allergies No known active allergies Medications oxyCODONE [...] this topic Medical Devices Implanted Type Area Non Destructive Testing Technician Device Identifier Shelf Expiration Date Model / Serial / Lot [employer] Micromatrix Micronize Particle Dressing 1000mg Biological Porcine [id number] - [id number] - [id number] Implanted:Qty: 1 on 06/04/2021 by Marcie Bailey MD at [facility] Collagen Right: Groin [employer] [id number] 07/22/2022 [id number] / [id number] / [id number] [employer] Micromatrix Micronize Particle Dressing 1000mg Biological Porcine [id number] - [id number] - [id number] Implanted:Qty: 1 on 06/04/2021 by Marcie Bailey MD at [facility] Collagen Right: Groin [employer] [id number] 07/22/2022 [id number] / [id number] / [id number] [employer] [id number] Cytal 10x7cm 3 Layer Matrix Tissue Porcine Bladder - [id number] - [id number] Implanted:Qty: 1 on 06/01/2021 by Marcie Bailey MD at [facility] Mesh N/A: Scrotum [employer] 06/21/2021 [id number] / [id number] / Description:Entire 10 x 7 cm acell implanted. [employer] Micromatrix Micronize Particle Dressing 1000mg Biological Porcine [id number] - [id number] - [id number] Implanted:Qty: 1 on 06/01/2021 by Marcie Bailey MD at [facility] Other - see comments N/A: Scrotum [employer] [id number] 07/22/2022 [id number] / [id number] / [id number] Description:PASTE POWDER Insurance [facility] Advance Directives For more information, please contact: [phone] * Full Code (Latest Code Status on File) Date Activated Date Inactivated Comments 05/27/2021 7:42 PM 06/05/2021 5:10 PM Care Teams Security Operations Engineer Relationship Specialty Start Date End Date No, Physician PCP - General 05/27/21
--- OUTSIDE RECORDS SUMMARY | 2024-08-30 20:22 | XMS_ITS | Clinical Summary ---
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
--- OUTSIDE RECORDS SUMMARY | 2024-08-30 20:22 | XMS_ITS | Clinical Summary ---
Author Organization [facility] Address [address] [place] [id number] Care Team Providers Care Psychologist Industrial Organizational Name Role Phone None, Provider MD Primary Care Provider Unavaila ble Allergies No known active allergies Medications No known medications Active Problems Problem Noted Date Diagnosed Date Facial cellulitis 05/21/2024 Difficulty sleeping 11/03/2023 Essential hypertension 11/03/2023 Abdominal pain 09/29/2023 Necrotizing fasciitis ([facility]) 05/28/19 22 Family History Medical History Relation [...] topic Meningococcal Vaccine Aged Out No joyce ryan eligible based on patient's age to complete this topic RSV Immunizations Under 20 Months Aged Out No longer eligible based on patient's age to complete this topic Advance Directives * Full Code (Latest Code Status on File) Date Activated Date Inactivated Comments 05/21/2024 3:58 PM 05/21/2024 9:24 PM Care Teams Psychologist Industrial Organizational Relationship Specialty Start Date End Date None, Provider, PCP - General UNKNOWN PHYSICIAN SPECIALTY 09/05/23
== END 2024-08-30 20:23 | disposition left against medical advice (07) ==
LOC: ANHED 20:20
DX: R10.9 Unspecified abdominal pain (principal)
CPT/HCPCS: 99199

== ENCOUNTER 2025-02-11 13:51 | Emergency (ER) | payer SELFPAY ==
--- OUTSIDE RECORDS SUMMARY | 2025-02-11 13:53 | XMS_ITS | Encounter Summary ---
Author Organization [facility] Address [address] [place] [address] Care Team Providers Care Purchasing Officer Name Role Phone None, Physician Primary Care Provider Unavailabl e Encounter Details Date Type Department Care Team (Late st Contact Info) Description 05/21/2024 Ophth Exam [facility] - Ophthalmology [address] [place] [address] Jeremy Sanchez MD [address] [place] [address] Social History Tobacco Use Types Packs/Day Years [...] on filedocumented in this encounter Care Teams Purchasing Officer Relationship Specialty Start Date End Date None, Physician PCP - General 05/21/24 documented as of this encounter
--- OUTSIDE RECORDS SUMMARY | 2025-02-11 13:53 | XMS_ITS | Clinical Summary ---
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
--- OUTSIDE RECORDS SUMMARY | 2025-02-11 13:53 | XMS_ITS | Clinical Summary ---
Author Organization [facility] Address [address] [place] [address] Care Team Providers Care Geriatric Physician Name Role Phone No, Physician Primary Care Provider [phone] Allergies No known active allergies Medications oxyCODONE [...] <65 (1 of 2 - PCV) 2012 HPV Vaccines (1 - 3-dose SCDM series) 2020 Depression Screening 05/27/2022 05/27/2021, 05/28/19 22 Influenza Vaccine (#1) 2024 12/01/2016 Hepatitis B Screening Completed 05/29/1994 , 1993, 1993 Medical Devices Implanted Type Area Motor Vehicles Inspector Device Identifier Shelf Expiration Date Model / Serial / Lot [employer] Micromatrix Micronize Particle Dressing 1000mg Biological Porcine [id number] - [id number] - [id number] Implanted:Qty: 1 on 06/04/2021 by Marcie Bailey MD at [facility] Collagen Right: Groin [employer] [id number] 07/22/2022 [id number] / [id number] / [id number] [employer] Micromatrix Micronize Particle Dressing 1000mg Biological Porcine [id number] - [id number] - [id number] Implanted:Qty: 1 on 06/04/2021 by Marcie Bailey MD at [facility] Collagen Right: Groin [employer] [id number] 07/22/2022 [id number] / [id number] / [id number] [employer] [id number] Cytal 10x7cm 3 Layer Matrix Tissue Porcine Bladder - [id number] - [id number] Implanted:Qty: 1 on 06/01/2021 by Marcie Bailey MD at [facility] Mesh N/A: Scrotum [employer] 06/21/2021 [id number] / [id number] / Description:Entire 10 x 7 cm acell implanted. [employer] Micromatrix Micronize Particle Dressing 1000mg Biological Porcine [id number] - [id number] - [id number] Implanted:Qty: 1 on 06/01/2021 by Marcie Bailey MD at [facility] Other - see comments N/A: Scrotum [employer] [id number] 07/22/2022 [id number] / [id number] / [id number] Description:PASTE POWDER Insurance [facility] Advance Directives For more information, please contact: [phone] * Full Code (Latest Code Status on File) Date Activated Date Inactivated Comments 05/27/2021 7:42 PM 06/05/2021 5:10 PM Care Teams Geriatric Physician Relationship Specialty Start Date End Date No, Physician PCP - General 05/27/21
--- OUTSIDE RECORDS SUMMARY | 2025-02-11 13:53 | XMS_ITS | Data Portability ---
Author Organization Bryan MCKEON Address [address] [place] [address] Assessment No assessment recorded. Plan of Treatment Reminders Order Date Submit Date Provider Last Modified By Organization Details Last Modified Time Details Appointments None recorded. Lab lipid panel, serum 2023 024 [facility], [address] [place] [address], [facility] [address], [place], [address], 4 08:15:00 HbA1c (hemoglobi n A1c), blood 2023 024 [facility], [address] [facility], [address], [place], [address], 4 08:15:01 CBC w/ auto diff 2016 017 [facility] (Lab), [address], [place], [address], 7 15:16:48 CMP, serum or plasma 2016 017 [facility] (Lab), [address], [place], [address], 7 15:53:19 TSH, serum or plasma 2016 017 [facility] (Lab), [address], [place], [address], 7 15:42:09 T4, free, serum 2016 017 [facility] (Lab), [address], [place], [address], 7 04:10:25 urinalysis , dipstick, reflex micro 2016 017 [facility] (Lab), [address], [place], [address], 7 15:17:19 HbA1c (hemoglobi n A1c), blood 2016 017 [facility] (Lab), [address], [place], [address], 7 03:37:57 cholestero l, total, serum 2016 017 [facility] (Lab), [address], [place], [address], 7 15:53:22 Referral general surgeon referral 2023 024 [email or web address] José Manuel Nuñez , [address] [place], [address], 4 16:21:[address]/dietiti an referral 2016 017 [email or web address] 6 [facility], [address] [place], [address], 7 11:17:15 Procedures None recorded. Surgeries None recorded. Imaging XR, knee, 3 view 2016 017 [facility] ([facility]), [address] [place], [address], 8 00:00:26 XR, knee, 3 view 2016 017 [facility] ([facility]), [address] [place], [address], 8 00:00:26 Medication Orders Carafate [address] [id number], [address] [place], [address], 4 15:01:24 pantoprazo le 40 mg tablet,del ayed release [address] [id number], [address] [place], [address], 4 15:01:24 chlorthali done 25 mg tablet 2023 024 [id number], [address] [place], [address], 4 15:01:24 pantoprazo le 40 mg tablet,del ayed release [address] [id number], [address] [place], [address], 4 15:51:27 Carafate 1 gram tablet [address] [id number], [address] [place], [address], 4 15:51:22 Patient TargetsNo targets recorded. 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5-6. 3 Not Available [facility] (Lab) [address] [place], [address], 12/01/2016 15:16:48 12/02/19 17 12/01/2016 CBC w/ auto diff hemoglobin 17.1 g/dL 13.5-1 7.5 Not Available [facility] (Lab) [address] [place], [address], 12/01/2016 15:16:48 12/02/19 17 12/01/2016 CBC w/ auto diff hematocrit 50.0 % 40.0-5 2.0 Not Available [facility] (Lab) [address] [place], [address], 12/01/2016 15:16:48 12/02/19 17 12/01/2016 CBC w/ auto diff MCV 86 fL 80-95 Not Available [facility] (Lab) [address] [place], [address], 12/01/2016 15:16:48 12/02/19 17 12/01/2016 CBC w/ auto diff MCH 29 pg 27-32 Not Available [facility] (Lab) [address] [place], [address], 12/01/2016 15:16:48 12/02/19 17 12/01/2016 CBC w/ auto diff MCHC 34 g/dL 32-36 Not Available [facility] (Lab) [address] [place], [address], 12/01/2016 15:16:48 12/02/19 17 12/01/2016 CBC w/ auto diff platelets 323 K/uL 155-37 9 Not Available [facility] (Lab) [address], [place], [address], 12/01/2016 15:16:48 12/02/19 17 12/01/2016 CBC w/ auto diff RDW 12.8 % 11.5-1 4.5 Not Available [facility] (Lab) [address] [facility], [place], [address], 12/01/2016 15:16:48 12/02/19 17 12/01/2016 CBC w/ auto diff MPV 10.1 fL 8.9-12 .7 Not Available [facility] (Lab) [address] [place], [address], 12/01/2016 15:16:48 12/02/19 17 12/01/2016 CBC w/ auto diff neutrophils absolute 5.4 K/uL 1.4-7. 0 Not Available [facility] (Lab) [address] [facility], [place], [address], 12/01/2016 15:16:48 12/02/19 17 12/01/2016 CBC w/ auto diff lymphs (absolute) 2.7 K/uL 0.7-3. 1 Not Available [facility] (Lab) [address] [facility], [place], [address], 12/01/2016 15:16:48 12/02/19 17 12/01/2016 CBC w/ auto diff monocytes (absolute) 0.6 K/uL 0.1-0. 9 Not Available [facility] (Lab) [address] [place], [address], 12/01/2016 15:16:48 12/02/19 17 12/01/2016 CBC w/ auto diff eos (absolute) 0.6 K/uL 0.0-0. 4 high Not Available [facility] (Lab) [address] [place], [address], 12/01/2016 15:16:48 12/02/19 17 12/01/2016 CBC w/ auto diff baso (absolute) 0.1 K/uL 0.1-0. 3 Not Available [facility] (Lab) [address] [place], [address], 12/01/2016 15:16:48 12/02/19 17 12/01/2016 CBC w/ auto diff neut % 58.0 % 40.0-7 4.0 Not Available [facility] (Lab) [address] [place], [address], 12/01/2016 15:16:48 12/02/19 17 12/01/2016 CBC w/ auto diff lymphs % 28.3 % 14.0-4 6.0 Not Available [facility] (Lab) [address] [place], [address], 12/01/2016 15:16:48 12/02/19 17 12/01/2016 CBC w/ auto diff mono % 6.7 % 4.0-12 .0 Not Available [facility] (Lab) [address] [place], [address], 12/01/2016 15:16:48 12/02/19 17 12/01/2016 CBC w/ auto diff eos % 6 % <=5 high Not Available [facility] (Lab) [address] [facility], [place], [address], 12/01/2016 15:16:48 12/02/19 17 12/01/2016 CBC w/ auto diff baso % 1.0 % 0.1-1. 1 Not Available [facility] (Lab) [address] [place], [address], 12/01/2016 15:16:48 12/02/19 17 12/01/2016 urina lysis , dipst ick, refle x micro urhead1 URINAL YSIS, COMPLE TE Ur inalys is Gross Exam Not Available [facility] (Lab) [address] [place], [address], 12/01/2016 15:17:19 10/10/20 17 12/01/2016 urina lysis , dipst ick, refle x micro specific gravity 1.025 1.001- 1.035 Not Available [facility] (Lab) [address], [place], [address], 12/01/2016 15:17:19 12/02/19 17 12/01/2016 urina lysis , dipst ick, refle x micro pH 6.0 5.0-7. 0 Not Available [facility] (Lab) [address], [place], [address], 12/01/2016 15:17:19 12/02/19 17 12/01/2016 urina lysis , dipst ick, refle x micro urine-color YELLOW yellow Not Available [facility] (Lab) [address], [place], [address], 12/01/2016 15:17:19 12/02/19 17 12/01/2016 urina lysis , dipst ick, refle x micro appearance CLEAR clear Not Available [facility] ([facility]) [address] [facility], [place], [address], 12/01/2016 15:17:19 12/02/19 17 12/01/2016 urina lysis , dipst ick, refle x micro WBC esterase NEGATI VE uL negati ve Not Available [facility] (Lab) [address] [facility], [place], [address], 12/01/2016 15:17:19 12/02/19 17 12/01/2016 urina lysis , dipst ick, refle x micro protein NEGATI VE mg/dL negati ve Not Available [facility] (Lab) [address] [facility] [place], [address], 12/01/2016 15:17:19 12/02/19 17 12/01/2016 urina lysis , dipst ick, refle x micro glucose NEGATI VE mg/dL negati ve Not Available [facility] (Lab) [address] [place], [address], 12/01/2016 15:17:19 12/02/19 17 12/01/2016 urina lysis , dipst ick, refle x micro ketones NEGATI VE mg/dL negati ve Not Available [facility] (Lab) [address], [place], [address], 12/01/2016 15:17:19 12/02/19 17 12/01/2016 urina lysis , dipst ick, refle x micro occult blood NEGATI VE familia/u L negati ve Not Available [facility] (Lab) [address], [place], [address], 12/01/2016 15:17:19 12/02/19 17 12/01/2016 urina lysis , dipst ick, refle x micro bilirubin NEGATI VE negati ve Not Available [facility] (Lab) [address], [place], [address], 12/01/2016 15:17:19 12/02/19 17 12/01/2016 urina lysis , dipst ick, refle x micro urobilinogen 0.2 Not Available [facility] (Lab) [address], [place], [address], 12/01/2016 15:17:19 12/02/19 17 12/01/2016 urina lysis , dipst ick, refle x micro nitrite, urine NEGATI VE negati ve Not Available [facility] (Lab) [address], [place], [address], 12/01/2016 15:17:19 12/02/19 17 12/01/2016 TSH, serum or plasm a TSH 1.44 uIU/m L 0.50-4 .50 Not Available [facility] (Lab) [address], [place], [address], 12/01/2016 15:42:09 12/02/19 17 12/01/2016 CMP, serum or plasm a glucose, serum 98 mg/dL 65-99 Not Available [facility] ([facility]) [address], [place], [address], 12/01/2016 15:53:19 12/02/19 17 12/01/2016 CMP, serum or plasm a BUN 14 mg/dL 8-26 Not Available [facility] (Lab) [address], [place], [address], 12/01/2016 15:53:19 12/02/19 17 12/01/2016 CMP, serum or plasm a creatinine, serum 1.00 mg/dL 0.50-1 .40 Not Available [facility] (Lab) [address], [place], [address], 12/01/2016 15:53:19 12/02/19 17 12/01/2016 CMP, serum or plasm a BUN/creatnin e ratio 14.[address] [facility] (Lab) [address], [place], [address], 12/01/2016 15:53:19 12/02/19 17 12/01/2016 CMP, serum or plasm a sodium, serum 141.0 mEq/L 136.0- 144.0 Not Available [facility] (Lab) [address], [place], [address], 12/01/2016 15:53:19 12/02/19 17 12/01/2016 CMP, serum or plasm a potassium, serum 4.5 mmol/ L 3.5-5. 3 Not Available [facility] (Lab) [address], [place], [address], 12/01/2016 15:53:19 12/02/19 17 12/01/2016 CMP, serum or plasm a chloride, serum 103 mmol/ l 101-11 1 Not Available [facility] (Lab) [address], [place], [address], 12/01/2016 15:53:19 12/02/19 17 12/01/2016 CMP, serum or plasm a carbon dioxide total 24.7 mmol/ L 21.0-3 2.0 Not Available [facility] (Lab) [address], [place], [address], 12/01/2016 15:53:19 12/02/19 17 12/01/2016 CMP, serum or plasm a aniongp 18.0 mmol/ L Not Available [facility] (Lab) [address], [place], [address], 12/01/2016 15:53:19 12/02/19 17 12/01/2016 CMP, serum or plasm a calcium, serum 10.1 mg/dL 8.2-10 .0 high Not Available [facility] (Lab) [address], [place], [address], 12/01/2016 15:53:19 12/02/19 17 12/01/2016 CMP, serum or plasm a total protein 7.2 g/dL 6.7-8. 2 Not Available [facility] (Lab) [address], [place], [address], 12/01/2016 15:53:19 12/02/19 17 12/01/2016 CMP, serum or plasm a albumin, serum 4.6 g/dL 3.5-5. 5 Not Available [facility] (Lab) [address], [place], [address], 12/01/2016 15:53:19 12/02/19 17 12/01/2016 CMP, serum or plasm a agratio 1.8 Not Available [facility] (Lab) [address], [place], [address], 12/01/2016 15:53:19 12/02/19 17 12/01/2016 CMP, serum or plasm a bilt 0.3 mg/dL 0.2-1. 0 Not Available [facility] (Lab) [address], [place], [address], 12/01/2016 15:53:19 12/02/19 17 12/01/2016 CMP, serum or plasm a AST 16.0 U/L 10.0-4 2.0 Not Available [facility] (Lab) [address], [place], [address], 12/01/2016 15:53:19 12/02/19 17 12/01/2016 CMP, serum or plasm a ALT 26.0 U/L 10.0-6 0.0 Not Available [facility] (Lab) [address], [place], [address], 12/01/2016 15:53:19 12/02/19 17 12/01/2016 CMP, serum or plasm a alk phos 68.0 IU/L 42.0-1 21.0 Not Available [facility] (Lab) [address], [place], [address], 12/01/2016 15:53:19 12/02/19 17 12/01/2016 CMP, serum or plasm a osmol 282.0 mOsm/ L 275.0- 301.0 Not Available [facility] (Lab) [address], [place], [address], 12/01/2016 15:53:19 12/02/19 17 12/01/2016 CMP, serum or plasm a eGFR, AM 119 m/lmi n/1.7 3_m >=60 Not Available [facility] (Lab) [address], [place], [address], 12/01/2016 15:53:19 12/02/19 17 12/01/2016 CMP, serum or plasm a eGFR, non- AM 99 mL/mi n/1.7 3/m >=60 Not Available [facility] (Lab) [address], [place], [address], 12/01/2016 15:53:19 12/02/19 17 12/01/2016 sherif stero l, total , serum cholestrol 232.0 mg/dL 140.0- 200.0 high Not Available [facility] (Lab) [address], [place], [address], 12/01/2016 15:53:22 1012/02/2016 HbA1c (hemo globi n A1c), blood hemoglobin A1C 5.1 % 4.8-5. 6 . Pre-d iabet es: 5.7 - 6.4 Diabe denzel: >6.4 Glyce christen contr ol for adult s with diabe denzel: <7.0 Not Available [facility] (Lab) [address], [place], [address], 12/02/2016 03:37:57 12/02/1912/02/2016 T4, free, serum T4,free(dire ct) 1.20 NG/dL 0.82-1 .77 Not Available [facility] (Lab) [address] [facility], [place], [address], 12/02/2016 04:10:25 12/09/1912/08/2016 lipid panel w/ direc t LDL, serum cholestrol 244.0 mg/dL 140.0- 200.0 high Not Available [facility] (Lab) [address] [facility], [place], [address], 12/08/2016 16:03:56 12/09/1912/08/2016 lipid panel w/ direc t LDL, serum triglyceride s 406 mg/mL 150-19 9 high Not Available [facility] (Lab) [address] [facility], [place], [address], 12/08/2016 16:03:56 12/09/1912/08/2016 lipid panel w/ direc t LDL, serum HDL cholesterol 32.0 mg/dL 40.0-1 00.0 low Not Available [facility] (Lab) [address] [facility], [place], [address], 12/08/2016 16:03:56 12/09/1912/08/2016 lipid panel w/ direc t LDL, serum LDL direct 165 mg/dL <=100 high Not Available [facility] ([facility]) [address] [place], [address], 12/08/2016 16:03:56 12/09/1912/08/2016 lipid panel w/ direc t LDL, serum cholhdl 7.60 mg/dL 0.00-4 .98 high Not Available [facility] (Lab) [address], [place], [address], 12/08/2016 16:03:56 09/29/19 24 09/30/2023 LIPID PANEL cholesterol, total 233 mg/dL 100-19 9 above high normal Not Available [facility] ([facility]) [address] [place], [address], 09/30/2023 08:15:00 09/29/19 24 09/30/2023 LIPID PANEL triglyceride s 116 mg/dL 0-149 Not Available [facility] ([facility]) [address] [place], [address], 09/30/2023 08:15:00 09/29/19 24 09/30/2023 LIPID PANEL HDL cholesterol 42 mg/dL >39 Not Available [facility] ([facility]) [address] [place], [address], 09/30/2023 08:15:00 09/29/19 24 09/30/2023 LIPID PANEL VLDL cholesterol rudolph 21 mg/dL 5-40 Not Available [facility] ([facility]) [address] [place], [address], 09/30/2023 08:15:00 09/29/19 24 09/30/2023 LIPID PANEL LDL chol calc ([facility]) 170 mg/dL 0-99 above high normal Not Available [facility] ([facility]) [address] [place], [address], 09/30/2023 08:15:00 09/29/19 24 09/30/2023 HEMOG LOBIN A1C hemoglobin A1C 5.3 % 4.8-5. 6 Predi abete s: 5.7 - 6.4 Diabe denzel: >6.4 Glyce christen contr ol for adult s with diabe denzel: <7.0 Not Available [facility] ([facility]) [address] [facility], [place], [address], 09/30/2023 08:15:01 Result Notes None recorded. Problems Name Problem SNOMED Code Status Onset Date Resolution Date Notes Provider Name and Address Organization Details Recorded Time Bilateral knee pain Active 2016 Mandie Haque MA [facility], [place] - [facility] 7 11:27:34 Abdominal pain 56153284 Active 2023 Cornelius Parada PA-C Attn: Accountantonio christensen,[address] [facility], [place], [address], [facility] - [facility] 4 15:16:35 Necrotizing fasciitis of scrotum and perineum 789473866 Active 2023 Cornelius Parada PA-C Attn: Accountin g,[address] [facility], [place], [address], [facility] - [facility] 4 16:10:00 Essential hypertension 42942214 Active 2023 Cornelius Parada PA-C Attn: Accountin g,[address] [facility], [place], [address], [place] - [place] 4 14:58:54 Difficulty sleeping 565755041 Active 2023 Cornelius Parada PA-C Attn: Accountantonio g,[address] [facility], [place], [address], [facility] - [facility] 4 15:00:03 Problem Notes None recorded. Medical Equipment None [...] 09/29/2023 138/88 mm[Hg] LILIANA Marin Attn: Accounting,[address] [place], [address], [facility] 09/29/2023 15:18:39 Date Recorded Body height Body mass index (BMI) Body weight Oxygen saturation Heart rate Respiratory rate Provider Name and Address Organization Details Last Updated DateTime 4 179.07 cm 38.1 kg/m2 370168. 7 g 99 % 85 /min 18 /min Lyudmila Odell MA [facility] 4 15:08:19 Date Recorded Body height Body mass index (BMI) Body weight Oxygen saturation Heart rate Respiratory rate Systolic And Diastolic Provider Name and Address Organization Details Last Updated DateTime 4 179.07 cm 37.2 kg/m2 237925. 49 g 98 % 92 /min 17 /min 142/102 mm[Hg] Lyudmila Odell MA [facility] 4 14:31:23 Date Recorded Body height Body mass index (BMI) Body weight Oxygen saturation Heart rate Body temperature Systolic And Diastolic Provider Name and Address Organization Details Last Updated DateTime 7 179.07 cm 48.8 kg/m2 807621. 77 g 97 % 105 /min 98.5 [degF] 132/84 mm[Hg] Mandieashlee Haque [place] - [facility] 7 11:30:46 Social History Question Answer Notes LastModified by Organizat ion Details LastModified Time Tobacco Smoking Status Current Every Day Smoker Mandie Haque MA null, [place] - [facility] 12/01/2016 11:31:22 Do You Have An Advance [...] 12/01/2016 Are you able to care for yourself independently? Yes Information not available 12/01/2016 Do you or have you ever used e-cigarettes or vape? Current user of electronic cigarettes Information not available 09/29/2023 What is your exercise level? Occasional Information not available 12/01/2016 Mental Status Question Answer Note LastModified by Organization D etails LastModified Time Do you feel stressed (tense, restless, nervous, or anxious, or unable to sleep at night)? [id number] Information not available 09/29/2023 Family History Relationship [...] Response Coronary Artery Disease N Other N High Blood Pressure N Atrial Fibrillation N Kidney or Bladder Problems N Thyroid Problems N GI Problems N Depression N COPD N Blood Clots N Skin Problems N Anemia N Heart Attack (NH) N Anxiety Disorder N Diabetes N Muscle, Joint, or Bone Problems N Seizures/Epilepsy N Acid Reflux (GERD) N Cancer N Stroke N Asthma N Allergies N High Cholesterol N Hepatitis N Liver Disease N Headaches N Heart Failure N Osteoporosis N Immunizations Vaccine Type Date Status Note Provider Nam e and Address Organization Details Recorded Time Influenza, split virus, quadrivalent, preservative 7 completed Not Available [facility] 03/11/2019 02:34:22 DTaP 4 completed BHAVESH Negro, [place] [facility] 10/15/2016 17:00:21 DTaP 5 [place] BH[place] [facility] 10/15/2016 17:00:27 DTaP 6 BHAVESH Albert[place] [facility] 10/15/2016 17:00:31 Hib, unspecified formulation 4 completed BH[place] [facility] 10/15/2016 17:00:45 Hib, unspecified formulation 5 BHAVESH [place] [facility] 10/15/2016 17:00:51 Hib, unspecified formulation 6 BHAVESH [place] [facility] 10/15/2016 17:00:56 Hep B, adolescent or pediatric 4 completed BH[place]ESH [place] [facility] 10/15/2016 17:01:11 Hep B, adolescent or pediatric 4 completed [place] [facility] 10/15/2016 17:01:15 Hep B, adolescent or pediatric 5 completed Diana Mauricio [place], [place] [facility] 10/15/2016 17:01:19 MMR 6 completed BH[place]ESH [place] [facility] 10/15/2016 17:01:28 OPV, Unspecified 4 completed BHAVESH [place] [facility] 10/15/2016 17:14:32 OPV, Unspecified 5 completed BHAVESH Negro, [place] - [facility] 10/15/2016 17:14:40 OPV, Unspecified 6 completed BHAVESH Negro, [place] [facility] 10/15/2016 17:14:46 Past Encounters Encounter ID Performer Location Encounter Start Date Encounter Closed Date Diagnosis/Indication Diagnosis SNOMED-CT Code Diagnosis ICD10 Code Diagnosis IMO Codes Diagnosis Note [id number] MD Marcellus Bassett ([facility]) [address] [place] [address] 12/01/2016 11:09:26 12/04/2016 11:17:15 Bilateral knee pain 6549499041 6340203 M25.561 M25.562 Adult [facility] examination 179810948 Z00.00 Administra tion of influenza vaccine 61286321 Z23 Morbid obesity 332358370 E66.01 [id number] MD Marcellus Bassett ([facility]) [address] [place] [id number] 12/08/2016 10:40:56 12/15/2016 09:52:05 [id number] AWILDA Marin [address] [place] [address] 09/29/2023 14:57:48 09/29/2023 15:55:22 Abdominal pain 66221810 R10.9 09/29/23: reports several years and waxing [...] out of ED for this, most recently [facility] ED on 09/[address] [...] Elevated blood-pressure reading without diagnosis of hypertension 091450131 R03.0 09/29/23: 138/90 today. high in ED multiple times. RTC two weeks for recheck. Obesity 462156178 E66.9 Depression screening 171 555903 Z13.31 Xanthelasma 904464801 H0 2.60 09/29/23: incidental on exam and discussed in patient in detail. note hyperlipid emia on prior labs in 2017 and will recheck today along with a1c. 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 exam deferred. [id number] AWILDA Marin [facility] [address] [place] [address] 11/03/2023 14:24:50 11/03/2023 14:58:45 Obesity 165564109 E66.8 Abdominal pain 90876693 R10.9 11/03/23: reports marked benefit to pantoprazo [...] out of ED for this, most recently [facility] ED on 09/[address] [...] pt comfortabl e with plan. Essential hypertension 33433213 I10 11/03/23: 142/102 today and will go ahead and start chlorthali done. educated on adverse drug reactions in detail. Pt comfortabl e with plan. 09/29/23: 138/90 today. high in ED multiple times. RTC two weeks for recheck. Difficulty sleeping 3085 28235 Z72.820 11/03/23: reports initial insomnia and frequent waking. sometimes due to aches and pains and sometimes due to anxiety/ra cing thoughts. has tried melatonin without benefit in past. has never tried diphenhydr amine and recommend 50mg hs. pt will trial OTC. Depression screening 171 657785 Z13.31 Health Concerns Section Related Observation LastModified by Organization Detai ls LastModified Time None Recorded Concern Status LastModified by Organization Details LastModified Time None Recorded Advance Directives Directive Y: Payers Insurance Date Sequence Insurance Name Policy Number Policy Bhatia Covered Member ID Bhatia Member ID Guarantor Name 11/27/2024 1 [facility] ON OR AFTER 08/22/20 (MEDICAID REPLACEMENT - HMO) Garland Ellis [id number] Garland Ellis 09/29/2023 1 [facility] PRIOR TO 08/22/2020 (MEDICAID REPLACEMENT - HMO) Garland Ellis [id number] Garland Ellis Notes Date Note Type Note [...] about healthy eating. RAEANN Chaudhari Attn: Accounting,[address] [facility], [place], [address], [facility] 12/01/2016 22:13:57 09/29/2023 text/html ROS as noted in the HPI new patient, presents for evaluation of abdominal [...] out of ED for this, most recently [facility] ED on 09/[address] abdomen/pelvis unrevealing. reports has been rx'ed dicyclomine, omeprazole, and famotidine for this in the past and taking famotidine currently TiD with some small benefit. PMH stated as otherwise unremarkable.olga s significant heartburn, chest pain, dyspnea, flank pain, LUTS. has tried no OTCs or specific diets for these symptoms. Cornelius Parada PA-C Attn: Accounting,[address] [facility], [place], [address], [facility] 09/29/2023 16:12:20 11/03/2023 text/html ROS as noted in the HPI pt presents for f/u abdominal pain.reports marked [...] has tried melatonin without benefit in past. Cornelius Parada PA-C Attn: Accounting,[address] [facility], [place], [address], [facility] 11/03/2023 16:18:53
--- OUTSIDE RECORDS SUMMARY | 2025-02-11 13:53 | XMS_ITS | Clinical Summary ---
Author Organization [facility] Address [address] [place] [address] Care Team Providers Care Milk Handler Name Role Phone None, Physician Primary Care Provider Unavailabl e Source Comments [facility],non-owned Affiliates and Associated Physician Practices is amultiple site organization consisting of ambulatory clinics and hospital sitesin [place], [place], [place] and [place]. This disclosure is being madepursuant to the Care Everywhere program and may not contain all information available regarding this patient. Last updated 17.[facility] Allergies No known active allergies Medications * Be aware that medications may not be up to date on this document. Alwaysverify current medications with the patient. erythromycin (Romycin) 5 MG/GM ophthalmic ointment Instill into left eye 4 times daily 3.5 g 05/21/2024 Active oxymetazoline (Afrin) 0.05 % nasal spray [place] 1 (one) spray into each nostril 2 [...] of 3 - 19+ 3-dose series) 2012 HPV VACCINE (1 - 3-dose SCDM series) 2020 DEPRESSION SCREENING 02/23/2024 COVID-19 VACCINE (2024-2 6 season) 2024 INFLUENZA VACCINE (#1) 2024 12/01/2016 DTAP/TDAP/TD VACCINES [...] age to complete this topic Care Teams Milk Handler Relationship Specialty Start Date End Date None, Physician PCP - General 05/21/24
[2025-02-11 14:26] VITALS: BP 180/104; PULSE 99; RESP 18; TEMP 36.6; O2SAT 99
[2025-02-11 16:17] LABS: Hematocrit 49.9 % (42.0-52.0); Hemoglobin 17.3 g/dL (14.0-18.0); Immature Granulocyte Percent A 0.5 % (0-0.5); Lymphocytes Absolute Auto 2.09 K/mm3 (0.9-3.2); Mean Corpuscular HGB Conc 34.7 g/dl (32-36); Mean Corpuscular Hemoglobin 31.6 pg (26-34); Mean Corpuscular Volume 91.2 fl (80-100); Nucleated Red Blood Cells Absolute Auto 0.000 K/mm3 (0.0-0.012); Nucleated Red Blood Cells Perc 0.0 % (0.0-0.2); Platelet Count Result 295 k/mm3 (150-375); Red Blood Count 5.47 M/mm3 (4.6-6.20); White Blood Count 8.4 K/mm3 (4.5-10.0)
[2025-02-11 16:23] LABS: Add Urine Microscopic? NO; Appearance Urine Clear (Clear); Glucose Urine UA Negative (Negative); Leukocyte Esterase Ur Negative LEU/UL (Negative); Nitrate Urine Negative (Negative); Specific Grav Ur 1.015 (1.001-1.035)
[2025-02-11 16:33] LABS: Alanine Aminotransferase 21 U/L (6-50); Albumin Level 4.9 g/dL (3.5-5.1); Alkaline Phosphatase 57 U/L (38-126); Anion Gap 10 mmol/L (4-12); Aspartate Amino Transferase 25 U/L (17-59); Bilirubin,Total 1.0 mg/dL (0.2-1.3); Blood Urea Nitrogen 15 mg/dL (9-20); Calcium 9.9 mg/dL (8.4-10.2); Carbon Dioxide 26 mmol/L (22-30); Chloride 104 mmol/L (98-107); Estimated CRCL calculation 118 ml/min; Estimated Glomerular Filt Rate > 60; Glucose 107 mg/dL (65-110); Lipase 39 U/L (23-300); Potassium 4.2 mmol/L (3.4-5.0); Sodium 140 mmol/L (137-145); Total Protein 8.0 g/dL (6.3-8.2)
--- OUTSIDE RECORDS SUMMARY | 2025-02-11 16:46 | XMS_ITS | Clinical Summary ---
Author Organization [facility] Address [address] [place] [address] Care Team Providers Care Oil Sprayer Name Role Phone None, Physician Primary Care Provider Unavailabl e Source Comments [facility],non-owned Affiliates and Associated Physician Practices is amultiple site organization consisting of ambulatory clinics and hospital sitesin [place], [place], [place] and [place]. This disclosure is being madepursuant to the Care Everywhere program and may not contain all information available regarding this patient. Last updated 17.[facility] Allergies No known active allergies Medications * Be aware that medications may not be up to date on this document. Alwaysverify current medications with the patient. erythromycin (Romycin) 5 MG/GM ophthalmic ointment Instill into left eye 4 times daily 3.5 g 05/21/2024 Active oxymetazoline (Afrin) 0.05 % nasal spray [place] 1 (one) spray into each nostril 2 [...] age to complete this topic Care Teams Oil Sprayer Relationship Specialty Start Date End Date None, Physician PCP - General 05/21/24
--- OUTSIDE RECORDS SUMMARY | 2025-02-11 16:46 | XMS_ITS | Encounter Summary ---
Author Organization [facility] Address [address] [place] [address] Care Team Providers Care Personal Financial Advisor Name Role Phone None, Physician Primary Care Provider Unavailabl e Encounter Details Date Type Department Care Team (Late st Contact Info) Description 05/21/2024 Ophth Exam [facility] - Ophthalmology [address] [place] [address] Jeremy Sanchez MD [address] [place] [address] Social History Tobacco Use Types Packs/Day Years [...] on filedocumented in this encounter Care Teams Personal Financial Advisor Relationship Specialty Start Date End Date None, Physician PCP - General 05/21/24 documented as of this encounter
--- OUTSIDE RECORDS SUMMARY | 2025-02-11 16:46 | XMS_ITS | Clinical Summary ---
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
--- OUTSIDE RECORDS SUMMARY | 2025-02-11 16:46 | XMS_ITS | Clinical Summary ---
Author Organization [facility] Address [address] [place] [address] Care Team Providers Care Commercial Artist Lettering Name Role Phone No, Physician Primary Care Provider [phone] Allergies No known active allergies Medications oxyCODONE [...] 1993, 1993 Medical Devices Implanted Type Area Vegetable Tester Device Identifier Shelf Expiration Date Model / Serial / Lot [employer] Micromatrix Micronize Particle Dressing 1000mg Biological Porcine [id number] - [id number] - [id number] Implanted:Qty: 1 on 06/04/2021 by Marcie Baliey MD at [facility] Collagen Right: Groin [employer] [id number] 07/22/2022 [id number] / [id number] / [id number] [employer] Micromatrix Micronize Particle Dressing 1000mg Biological Porcine [id number] - [id number] - [id number] Implanted:Qty: 1 on 06/04/2021 by Marcie Bailey MD at [facility] Collagen Right: Groin [employer] [id number] 07/22/2022 [id number] / [id number] / [id number] [employer] [id number] Cytal 10x7cm 3 Layer Matrix Tissue Porcine Bladder - [id number] - [id number] Implanted:Qty: 1 on 06/01/2021 by Marcie Bailey MD at [facility] Mesh N/A: Scrotum [employer] 06/21/2021 [id number] / [id number] / Description:Entire 10 x 7 cm acell implanted. [employer] Micromatrix Micronize Particle Dressing 1000mg Biological Porcine [id number] - [id number] - [id number] Implanted:Qty: 1 on 06/01/2021 by Marcie Bailey MD at [facility] Other - see comments N/A: Scrotum [employer] [id number] 07/22/2022 [id number] / [id number] / [id number] Description:PASTE POWDER Insurance [facility] Advance Directives For more information, please contact: [phone] * Full Code (Latest Code Status on File) Date Activated Date Inactivated Comments 05/27/2021 7:42 PM 06/05/2021 5:10 PM Care Teams Commercial Artist Lettering Relationship Specialty Start Date End Date No, Physician PCP - General 05/27/21
[2025-02-11 16:53] LABS: Influenza A QL RT-PCR Negative (Negative); Influenza B QL RT-PCR Negative (Negative); SARS-CoV-2 RNA PCR Negative (Negative)
[2025-02-11] MEDS: LACTATED RINGERS 1,000 ML 999 ML IV CONT (16:58)
--- NOTE | 2025-02-11 16:58 | ED_ITS ---
HPI - Nausea/Vomiting/Diarrhea General Chief complaint: Nausea/Vomiting/Diarrhea Stated complaint: nausea/vomting/diarrhea Time Seen by Provider: 02/11/25 16:06 Source: patient Mode of arrival: ambulatory Limitations: no limitations History of Present Illness HPI Narrative: This is a 29 year old male that presents to the ER for nausea, vomiting and diarrhea. Ongoing since yesterday. Reports a headache, body aches and subjective fevers. Denies abdominal pain. Related Data Allergies Allergy/AdvReac Type Severity Reaction Status Date / Time No Known Allergies Allergy Unknown Verified 02/11/25 16:27 Review of Systems 2 Review of Systems: All systems reviewed & are unremarkable except as noted in HPI and below Exam 2 Narrative: GENERAL: Well-appearing, well-nourished, and in no acute distress. HEAD: Normocephalic, atraumatic. EYES: EOMI. ENT: Nares clear, no rhinorrhea or epistaxis. Mucous membranes moist. Oropharynx without tonsillar hypertrophy exudate or other lesions. NECK: Supple. No adenopathy or masses. CHEST: Clear to auscultation. No respiratory distress. No wheezes rales or rhonchi HEART: Regular rate and rhythm. No murmur heard. Normal peripheral pulses. ABDOMEN: Soft, nontender, nondistended, normal active bowel sounds. EXTREMITIES: Normal range of motion. No edema. SKIN: Warm, dry, no rash. NEURO: No focal deficits. Alert and oriented x3. PSYCH: Normal mood and affect Course Vital Signs Vital signs: Vital Signs Temperature 97.8 F 02/11/25 14:26 Pulse Rate 99 02/11/25 14:26 Respiratory Rate 18 02/11/25 14:26 Blood Pressure 180/104 H 02/11/25 14:26 Pulse Oximetry 99 02/11/25 14:26 Oxygen Delivery Room Air 02/11/25 14:26 Temperature 97.8 F 02/11/25 14:26 Pulse Rate 99 02/11/25 14:26 Respiratory Rate 18 02/11/25 14:26 Blood Pressure 180/104 H 02/11/25 14:26 Pulse Oximetry 99 02/11/25 14:26 Oxygen Delivery Room Air 02/11/25 14:26 MDM MDM Narrative Medical decision making narrative: Patient presents to the emergency department for viral symptoms ongoing since yesterday. Reporting headaches, vomiting, diarrhea. Patient is afebrile and nontoxic appearing. Cbc metabolic panel without concerning findings. Lipase is normal. Urine without evidence of infection. COVID and influenza screens are negative. Abdominal exam is benign. Relief with IV fluids, antiemetic. Tolerating p.o. challenge. Will follow up with PCP Differential Diagnosis Differential Diagnosis: dehydration, electrolyte derangement, gastroenteritis, viral syndrome, covid, influenza Lab Data MDM Lab Attestation statement: I personally reviewed the patient's lab results. 02/11/25 16:11 02/11/25 16:11 Labs: Lab Results 02/11/25 02/11/25 Range/Units 16:11 16:18 WBC 8.4 (4.5-10.0) K/mm3 RBC 5.47 (4.6-6.20) M/mm3 Hgb 17.3 (14.0-18.0) g/dL Hct 49.9 (42.0-52.0) % MCV 91.2 (80-100) fl MCH 31.6 (26-34) pg MCHC 34.7 (32-36) g/dl RDW 11.9 (11.5-14.5) % Plt Count 295 (150-375) k/mm3 MPV 9.1 (7.4-10.4) fl Immature Gran % (Auto) 0.5 (0-0.5) % Neut % (Auto) 64.8 (45.5-73.1) % Lymph % (Auto) 24.9 (18.3-44.2) % Peach % (Auto) 7.0 (2.6-8.5) % Eos % (Auto) 2.1 (0-4.4) % Baso % (Auto) 0.7 (0.2-1.2) % Lymph # (Auto) 2.09 (0.9-3.2) K/mm3 Peach # (Auto) 0.6 (0.1-0.6) K/mm3 Eos # (Auto) 0.2 (0-0.3) K/mm3 Baso # (Auto) 0.1 (0.0-0.1) K/mm3 Abs Immat Gran (auto) 0.04 H (0.00-0.031) K/mm3 Absolute Neuts (auto) 5.4 (1.3-6.7) K/mm3 Absolute Nucleated RBC 0.000 (0.0-0.012) K/mm3 Nucleated RBC % 0.0 (0.0-0.2) % Sodium 140 (137-145) mmol/L Potassium 4.2 (3.4-5.0) mmol/L Chloride 104 (98-107) mmol/L Carbon Dioxide 26 (22-30) mmol/L Anion Gap 10 (4-12) mmol/L BUN 15 (9-20) mg/dL Creatinine 1.03 (0.7-1.3) mg/dL Estim Creat Clear Calc 118 ml/min Estimated GFR > 60 (59 - ) Glucose 107 (65-110) mg/dL Calcium 9.9 (8.4-10.2) mg/dL Total Bilirubin 1.0 (0.2-1.3) mg/dL AST 25 (17-59) U/L ALT 21 (6-50) U/L Alkaline Phosphatase 57 (38-126) U/L Total Protein 8.0 (6.3-8.2) g/dL Albumin 4.9 (3.5-5.1) g/dL Lipase 39 (23-300) U/L Urine Color Yellow (Yellow) Urine Appearance Clear (Clear) Urine pH 6.0 (5.0-9.0) Ur Specific [place] 1.015 (1.001-1.035) Urine Protein Negative (Negative) mg/dL Urine Glucose (UA) Negative (Negative) mg/dL Urine Ketones Negative (Negative) mg/dL Ur Blood (Man) Negative (Negative) Urine Nitrate Negative (Negative) Urine Bilirubin Negative (Negative) Urine Urobilinogen 0.2 (<2.0) mg/dL Leukocyte Esterase Rfl Negative (Negative) YUMIKO/UL Influenza A (RT-PCR) Negative (Negative) Influenza B (RT-PCR) Negative (Negative) SARS-CoV-2 RNA (RT-PCR) Negative (Negative) Critical Care Time Critical Care Time Critical Care Time: No Discharge Plan Discharge Clinical Impression: Gastroenteritis Patient Disposition: Home Condition: Improved Instructions: Gastroenteritis (ED) Additional Instructions: Return to the ER if you experience fever, abdominal pain with nausea and vomiting, you are unable to keep down liquids or solids, or any other symptoms that are concerning to you Small, frequent meals. [place] diet. Remain well hydrated. Ondansetron as needed for nausea Follow up with primary care doctor Patient Language: Serbian Prescriptions: New ondansetron 4 mg tablet,disintegrating 4 mg PO Q8H PRN (Reason: nausea and vomiting) Qty: 10 0RF Follow-up/Referrals: PHYSICIAN,MEDICAL ASSISTANT INSTRUCTOR [Primary Care Provider, Internal Medicine] Liu Mayes MD [Physician, Family Practice]
[2025-02-11] MEDS: ONDANSETRON INJ 4 MG/2 ML VIAL IV PUSH (16:59)
[2025-02-11] MEDS: FAMOTIDINE 20 MG/2 ML VIAL IV PUSH (16:59)
== END 2025-02-11 19:01 | disposition home or self-care (01) ==
PROVIDERS: Emergency Provider Physician Assistant
DX: K52.9 Noninfective gastroenteritis and colitis, unspecified (principal); Z20.822 Contact with and (suspected) exposure to COVID-19
CPT/HCPCS: 36415; 80053; 81003; 83690; 85025; 87636; 96361; 96374; 96375; 99284; J2405; J7120